=== PATIENT | male | born 1950 | race Caucasian/White ===

== ENCOUNTER → 2021-01-19 15:42 | Outpatient (CLI) | payer MEDICARE, BC, SELFPAY ==
[2021-01-19 18:09] LABS: BUN Creatinine Ratio 10.7 (6-22); Blood Urea Nitrogen 9 mg/dL (9-20); Calcium 9.5 mg/dL (8.4-10.2); Carbon Dioxide 29 mmol/L (22-32); Chloride 95 mmol/L (98-107); Estimated Glomerular Filt Rate > 60.0 mL/min (>60); Glucose 82 mg/dL (80-110); HEMOLYSIS < 15 (0-50); Hemoglobin A1C% w Est Avg Glu 6.6 % (4.0-6.0); Potassium 4.7 mmol/L (3.4-5.1); Sodium 133 mmol/L (137-145)
== END ==
PROVIDERS: PCP Student in an Organized Health Care Education/Training Program; Referring Provider Student in an Organized Health Care Education/Training Program; Visit Provider Student in an Organized Health Care Education/Training Program
DX: E11.9 Type 2 diabetes mellitus without complications (principal); I25.10 Atherosclerotic heart disease of native coronary artery without angina pectoris
CPT/HCPCS: 36415; 80048; 83036

== ENCOUNTER → 2021-04-13 11:56 | Outpatient (CLI) | payer MEDICARE, SELFPAY ==
[2021-04-13 13:50] LABS: Prostate Specific Antigen 0.263 ng/mL (0.10-4.00)
== END ==
PROVIDERS: PCP Student in an Organized Health Care Education/Training Program; Referring Provider Specialist; Visit Provider Specialist
DX: N40.1 Benign prostatic hyperplasia with lower urinary tract symptoms (principal); N13.8 Other obstructive and reflux uropathy
CPT/HCPCS: 36415; 84153

== ENCOUNTER → 2021-06-13 08:19 | Outpatient (CLI) | payer MEDICARE, SELFPAY ==
[2021-06-13 10:58] LABS: Cortisol AM (Before 10AM) 8.17 ug/dL (4.46-22.7); Prostate Specific Antigen Scrn 0.378 ng/mL (0.1-4.0)
[2021-06-13 12:31] LABS: Prealbumin 24.6 mg/dL (17.6-36.0)
[2021-06-13 12:38] LABS: BUN Creatinine Ratio 12.9 (6-22); Blood Urea Nitrogen 12 mg/dL (9-20); Estimated Glomerular Filt Rate > 60.0 mL/min (>60)
[2021-06-20 12:12] LABS: Aldosterone/Renin Activity Rat 17.3 (0.0-30.0); Plama Renin, LC/MS/MS 1.227 ng/mL/hr (0.167-5.380)
[2021-06-25 22:39] LABS: Metanephrine,Plasma 24.6 pg/mL (0.0-88.0)
== END ==
PROVIDERS: PCP Student in an Organized Health Care Education/Training Program; Referring Provider Student in an Organized Health Care Education/Training Program; Visit Provider Student in an Organized Health Care Education/Training Program
DX: Z12.5 Encounter for screening for malignant neoplasm of prostate (principal); E27.8 Other specified disorders of adrenal gland; R63.0 Anorexia
CPT/HCPCS: 36415; 82088; 82533; 82565; 83835; 84134; 84244; 84520; G0103

== ENCOUNTER → 2021-06-23 12:40 | Outpatient (CLI) | payer MEDICARE, SELFPAY ==
--- NOTE | 2021-06-23 12:41 | DI.CT.S_ITS ---
PROCEDURE: CT ABDOMEN PELVIS WO/W CON INDICATIONS: Adrenal incidentaloma TECHNIQUE: After the administration of oral contrast, 5 mm thick sections acquired from the diaphragms to the iliac crests. After the administration of intravenous contrast, 5 mm thick sections acquired from the diaphragms to the symphysis. 5 mm thick coronal and sagittal reformats were acquired. For radiation dose reduction, the following was used: automated exposure control, adjustment of mA and/or kV according to patient size. COMPARISON: [facility], CT, CT ABDOMEN PELVIS WITH CONTRAST, 06/09/2021, 15:02. FINDINGS: Image quality: Excellent. ABDOMEN: Lung bases: Lung bases are clear. Heart size is normal. Solid organs: Liver is normal in size and enhancement. Gallbladder has been removed. Mild prominence of the common bile duct is unchanged suspected to be post cholecystectomy sequela. Pancreas enhances normally. Spleen is normal in size and enhancement. Both kidneys are normal in size. No hydronephrosis. Nonobstructing 4 mm left renal calculus is present. There is an unchanged 1.9 cm right adrenal nodule. Hounsfield units measure 19, 94 and 38 within the non-contrast, venous and delayed phases respectively. Absolute washout is approximately 75% with relative washout at 60%. Bowel and peritoneum: Stomach, small and large bowel loops are normal in caliber and wall thickness. No free fluid or air. Gastric bypass is present. Postsurgical changes within the left abdomen are present. Nodes and vessels: No retroperitoneal or mesenteric adenopathy by size criteria. Aorta and inferior vena are normal in caliber. Miscellaneous: Previous ventral hernia repair is present. There is a small periumbilical hernia containing a short segment of colonic bowel loop without incarceration or strangulation. PELVIS: Genitourinary: Bladder wall thickness is normal. Miscellaneous: No inguinal hernias or adenopathy. Bones: No suspicious bony lesions. No vertebral body compression fractures. IMPRESSION: 1. Right adrenal nodule most consistent with adenoma. Dictated by: Georgie Avila M.D. on 06/23/2021 at 16:29 Approved by: Georgie Avila M.D. on 06/23/2021 at 16:34
== END ==
PROVIDERS: PCP Student in an Organized Health Care Education/Training Program; Referring Provider Student in an Organized Health Care Education/Training Program; Visit Provider Student in an Organized Health Care Education/Training Program
DX: E27.8 Other specified disorders of adrenal gland (principal); N20.0 Calculus of kidney; K42.9 Umbilical hernia without obstruction or gangrene; R63.4 Abnormal weight loss; Z86.010 Personal history of colon polyps; Z98.84 Bariatric surgery status; Z90.49 Acquired absence of other specified parts of digestive tract
CPT/HCPCS: 74178; 99214; Q9967

== ENCOUNTER → 2021-07-04 09:51 | Outpatient (CLI) | payer MEDICARE, SELFPAY ==
[2021-07-04 11:25] LABS: COVID19 -Nasal RAPID Negative (Negative)
== END ==
PROVIDERS: PCP Student in an Organized Health Care Education/Training Program; Visit Provider Specialist
DX: Z01.812 Encounter for preprocedural laboratory examination (principal); Z20.822 Contact with and (suspected) exposure to COVID-19
CPT/HCPCS: 87635; C9803

== ENCOUNTER 2021-07-05 09:04 | Day surgery (SDC) | payer MEDICARE, SELFPAY ==
[2021-07-05 09:50] VITALS: BP 168/66; PULSE 45; RESP 15; TEMP 36.1; O2SAT 100; BMI 25.7
[2021-07-05] MEDS: LACTATED RINGERS 1,000 ML 200 ML IV (10:15)
--- NOTE | 2021-07-05 10:23 | PM.PREOP ---
Pre-operative Note COVID-19 COVID-19 status: Negative Result date/Date tested (Pos, Neg/Pending): 07/04/21 Interval Note History & Physical reviewed/Exam performed by Physician: Yes Changes to H&P: No ASA Class (for procedural sedation): II
[2021-07-05] MEDS: fentaNYL 250 MCG/5 ML INJ IV (11:07)
[2021-07-05] MEDS: MIDAZOLAM 5 MG/5 ML VIAL IV (11:08)
[2021-07-05 11:09] VITALS: BP 124/60; PULSE 45; RESP 10; TEMP 36.5; O2SAT 99
--- NOTE | 2021-07-05 11:12 | P.OP.COLON_ITS ---
Operative Date/Time/Diagnoses Date of procedure: 07/05/21 Time of procedure: 11:12 Pre-op diagnosis: Screening for colon cancer. Unexplained weight loss. Last colonoscopy 6 years ago. Personal history of polyps. Post-op diagnosis: same Procedure & Clinicians Study performed: Colonoscopy Same procedure as scheduled: Yes Indications: Screening Surgeon: Darren Garza Procedure Notes SCOAP/Timeout: Performed Procedure in detail: The patient was placed in the left lateral decubitus position and underwent IV sedation directed by the surgeon consisting of fentanyl and Versed. Digital exam was remarkable for a flat prostate. The scope was inserted and advanced through the rectum into the sigmoid, descending, transverse, and ascending colon. A stiffener was inserted and pressure applied in order to reach the cec um. The cecum was reached identified by the ileocecal valve and the appendiceal opening. It was difficult to inflate the cecum for some reason but I felt I had a complete view of it. There was a good deal of liquid stool in it that I had to suction out and irrigate. The Scope was gradually brought out. NoPolyps were found. The scope ultimately was retroflexed in the rectum. The appearance was remarkable for internal hemorrhoids without ulceration. The scope was removed and the patient tolerated the procedure well. The prep was very good. Scope withdrawal time: 9 minutes Sedation minutes: 37 Findings: internal hemorrhoids Specimen(s): none sent Complications: none Post-procedure Recommendations: Colonoscopy in 5 years (Due to history of polyps) Follow up: as needed Disposition: PACU
[2021-07-05 11:14] VITALS: BP 113/59; PULSE 45; RESP 12; O2SAT 99
[2021-07-05 11:24] VITALS: BP 138/68; PULSE 45; RESP 16; TEMP 36.3; O2SAT 99
[2021-07-05 11:29] VITALS: BP 141/70; PULSE 46; RESP 14; TEMP 36.3; O2SAT 99
== END 2021-07-05 11:48 | disposition home or self-care (01) ==
PROVIDERS: PCP Student in an Organized Health Care Education/Training Program; Referring Provider Specialist; Visit Provider Specialist
PROC: 0DJD8ZZ Inspection of Lower Intestinal Tract, Via Natural or Artificial Opening Endoscopic (ICD-10-PCS; CPT 45378; principal; 2021-07-05 10:15)
DX: Z12.11 Encounter for screening for malignant neoplasm of colon (principal); Z86.010 Personal history of colon polyps; R63.4 Abnormal weight loss; K64.8 Other hemorrhoids
CPT/HCPCS: G0105; 99152; 99153; J2250; J3010

== ENCOUNTER → 2021-10-04 11:54 | Outpatient (CLI) | payer MEDICARE, SELFPAY ==
--- NOTE | 2021-10-05 13:52 | DIAB.MNT ---
Initial Diabetes Medical Nutrition Therapy Assessment Name: Asher Yi Date: 10/04/21 Time: [id number] Dx: Type II Diabetes Provider: Sylvia Sterling presents 1 hour late for his appt today. We decided to complete a very quick initial visit. Provided him paperwork to complete for next visit. 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 States he has been dealing with depression, exacerbated by his adult child's drug addiction. Reports h/o hypoglycemia on Metformin. No longer taking DM meds and feeling much better. H/o RYGB sx. This year got down to 185# due to sepsis and hospitalization. Continues to struggle with appetite, but endorses regular eating occurrences, usually 3-4 per day. Was drinking ensure, not currently. He is the cook in the house. He quit ETOH and diet soda. Self-Monitoring Blood Glucose: None Diabetes Medications: None Pertinent Labs: 01/2021: 6.6% 05/2021: 6.2% Past Medical History: (Last Updated 07/14/21 @ 11:36 by Asher Ward MD) Adrenal adenoma Anemia Atrial fibrillation BPH w urinary obs/LUTS Chicken pox Erectile dysfunction due to arterial disease Foot pain Fractures Hearing loss History of colon polyps Internal hemorrhoids Peyronie disease Ulcerative colitis (~1975) Vision disorder Nutrition Rx: Continue eating 3-4x per day (more detail next visit) Nutrition Diagnosis: - Altered nutrition related labs r/t diagnosis of DM aeb h/o labs >6.5% - Hx of inadequate energy intake r/t sepsis and potentially exacerbated by RYGB hx aeb h/o unintentional wt loss Intervention: This participant was very receptive. Provided appropriate educational handouts. Discussed the following topics: Reviewed nutrition and dm history Discussed eating occurrences Reviewed potential for additional protein intake with shakes-- he would like to reincorporate ensure Goals: Try to have ensure 1-2 x per day Follow-up: [facility] follow-up in 2-3 weeks Tamara Jackson RDN, NAZ[facility] Certified Diabetes Care and [employer] P: [phone] Thank you for this referral
== END ==
PROVIDERS: PCP Student in an Organized Health Care Education/Training Program; Referring Provider Student in an Organized Health Care Education/Training Program; Visit Provider Student in an Organized Health Care Education/Training Program
DX: E11.9 Type 2 diabetes mellitus without complications (principal)
CPT/HCPCS: 97802

== ENCOUNTER → 2021-12-29 11:45 | Outpatient (CLI) | payer MEDICARE, SELFPAY ==
[2021-12-29 13:40] LABS: Hemoglobin A1C% w Est Avg Glu 8.9 % (4.0-6.0)
[2021-12-29 14:12] LABS: BUN Creatinine Ratio 16.9 (6-22); Blood Urea Nitrogen 14 mg/dL (9-20); Estimated Glomerular Filt Rate > 60 mL/min (>60)
[2021-12-29 14:28] LABS: Creatinine Urine Random 50.8 mg/dL
[2021-12-29 14:37] LABS: Microalbumi Creatinin Ratio Ur 17.7 ug/mg CR (<30); Microalbumin Urine Random 0.9 mg/dL (0-1.6)
== END ==
PROVIDERS: PCP Student in an Organized Health Care Education/Training Program; Referring Provider Student in an Organized Health Care Education/Training Program; Visit Provider Student in an Organized Health Care Education/Training Program
DX: E11.9 Type 2 diabetes mellitus without complications (principal)
CPT/HCPCS: 36415; 82043; 82565; 82570; 83036; 84520

== ENCOUNTER → 2022-04-06 10:24 | Outpatient (CLI) | payer MEDICARE, SELFPAY ==
[2022-04-06 12:03] LABS: Alanine Aminotransferase 71 IU/L (<50); Albumin 4.1 g/dL (3.5-5.0); Albumin Globulin Ratio 1.2 (1.0-2.8); Alkaline Phosphatase 81 U/L (38-126); Aspartate Aminotransferase 77 IU/L (17-59); BUN Creatinine Ratio 10.6 (6-22); Bilirubin Total 0.3 mg/dL (0.2-1.3); Blood Urea Nitrogen 9 mg/dL (9-20); Calcium 8.5 mg/dL (8.4-10.2); Carbon Dioxide 26 mmol/L (22-32); Chloride 102 mmol/L (98-107); Cholesterol 105 mg/dL (140-199); Estimated Glomerular Filt Rate > 60 mL/min (>60); Globulin 3.3 g/dL (1.7-4.1); Glucose 179 mg/dL (80-110); HDL Cholesterol 51 mg/dL (40-60); HEMOLYSIS < 15 (0-50); LDL Cholesterol Calculated 40 mg/dL (<100); Potassium 4.2 mmol/L (3.4-5.1); Sodium 134 mmol/L (137-145); Total Protein 7.4 g/dL (6.3-8.2); Triglycerides 69 mg/dL (35-150)
[2022-04-06 12:20] LABS: Vitamin D 25 Hydroxy (D3) 49.8 ng/mL (30.0-100.0)
[2022-04-06 12:53] LABS: Vitamin B12 473 pg/mL (239-931)
[2022-04-07 03:36] LABS: Fructosamine 335 umol/L (0-285)
== END ==
PROVIDERS: PCP Student in an Organized Health Care Education/Training Program; Referring Provider Student in an Organized Health Care Education/Training Program; Visit Provider Student in an Organized Health Care Education/Training Program
DX: E11.69 Type 2 diabetes mellitus with other specified complication (principal); E55.9 Vitamin D deficiency, unspecified; E11.9 Type 2 diabetes mellitus without complications; E53.8 Deficiency of other specified B group vitamins; E78.5 Hyperlipidemia, unspecified; I10 Essential (primary) hypertension
CPT/HCPCS: 36415; 80053; 80061; 82306; 82607; 82985

== ENCOUNTER → 2023-01-22 10:38 | Outpatient (CLI) | payer MEDICARE, SELFPAY ==
[2023-01-22 11:45] LABS: Add Manual Diff / Slide Review NO; Basophils Absolute Auto 0 /uL (0-100); Basophils Percent Auto 0.7 % (0-2); Eosinophils Absolute Auto 200 /uL (0-450); Eosinophils Percent Auto 3.4 % (2-4); Hematocrit 30.1 % (41-53); Hemoglobin 9.3 g/dL (13.5-17.5); Lymphocytes Absolute Auto 2100 /uL (1100-4500); Lymphocytes Percent Auto 36.7 % (25-40); Mean Corpuscular HGB Conc 30.9 % (30-36); Mean Corpuscular Hemoglobin 20.9 PG (26-34); Mean Corpuscular Volume 67.6 fL (80-100); Monocytes Absolute Auto 600 /uL (0-900); Monocytes Percent Auto 10.7 % (3-14); Neutrophils Absolute Auto 2800 /uL (1500-7000); Neutrophils Percent Auto 48.5 % (50-75); Platelet Count 364 X10^3/uL (150-400); Red Blood Cell Count 4.45 X10^6/uL (4.5-5.9); Red Cell Distribution Width 18.1 % (11.6-14.8); White Blood Cell Count 5.8 X10^3/uL (4.5-11.0)
[2023-01-22 12:08] LABS: Alanine Aminotransferase 84 IU/L (<50); Albumin Globulin Ratio 1.4 (1.0-2.8); Alkaline Phosphatase 99 U/L (38-126); Aspartate Aminotransferase 70 IU/L (17-59); BUN Creatinine Ratio 14.6 (6-22); Bilirubin Total 0.3 mg/dL (0.2-1.3); Blood Urea Nitrogen 13 mg/dL (9-20); Calcium 8.8 mg/dL (8.4-10.2); Carbon Dioxide 28 mmol/L (22-32); Chloride 96 mmol/L (98-107); Cholesterol 99 mg/dL (140-199); Estimated Glomerular Filt Rate > 60 mL/min (>60); Globulin 2.9 g/dL (1.7-4.1); Glucose 227 mg/dL (80-110); HDL Cholesterol 36 mg/dL (40-60); HEMOLYSIS < 15 (0-50); LDL Cholesterol Calculated 40 mg/dL (<100); Potassium 4.8 mmol/L (3.4-5.1); Sodium 131 mmol/L (137-145); Total Protein 6.9 g/dL (6.3-8.2); Triglycerides 117 mg/dL (35-150)
[2023-01-22 12:11] LABS: Microcytosis 2+; Poikilocytosis 1+
[2023-01-22 12:20] LABS: Creatinine Urine Random 18.9 mg/dL
[2023-01-22 12:39] LABS: Microalbumin Urine Random < 0.6 mg/dL (0-1.6)
[2023-01-23 11:16] LABS: x Labcorp Estim. Avg Glu (eAG) 269 mg/dL (.)
== END ==
PROVIDERS: Student in an Organized Health Care Education/Training Program; PCP Pediatrics; Referring Provider Pediatrics; Visit Provider Pediatrics
DX: E11.69 Type 2 diabetes mellitus with other specified complication (principal); E11.9 Type 2 diabetes mellitus without complications; E53.8 Deficiency of other specified B group vitamins; E78.5 Hyperlipidemia, unspecified; I10 Essential (primary) hypertension
CPT/HCPCS: 36415; 80053; 80061; 82043; 82570; 83036; 85025

== ENCOUNTER → 2023-01-23 14:52 | Outpatient (CLI) | payer MEDICARE, SELFPAY ==
[2023-01-23 15:23] LABS: HEMOLYSIS < 15 (0-50); Iron 24 ug/dL (49-181)
[2023-01-23 15:34] LABS: Percent Iron Saturation 5 % (20-50); Total Iron Binding Capacity 449 ug/dL (261-462); Transferrin 326 mg/dL (206-381)
[2023-01-23 15:44] LABS: Reticulocyte Count, Percent 1.2 % (0.9-2.6)
[2023-01-23 16:28] LABS: Folate 18.7 ng/mL (2.76-20.0); Vitamin B12 657 pg/mL (239-931)
== END ==
PROVIDERS: PCP Pediatrics; Visit Provider Pediatrics
DX: E11.9 Type 2 diabetes mellitus without complications (principal); E53.8 Deficiency of other specified B group vitamins; I10 Essential (primary) hypertension; I35.0 Nonrheumatic aortic (valve) stenosis; K25.9 Gastric ulcer, unspecified as acute or chronic, without hemorrhage or perforation; R79.89 Other specified abnormal findings of blood chemistry; Z00.00 Encounter for general adult medical examination without abnormal findings
CPT/HCPCS: 82607; 82746; 83540; 83550; 85045

== ENCOUNTER 2023-02-21 15:25 | Emergency (ER) | payer MEDICARE, SELFPAY ==
[2023-02-21 15:40] VITALS: BP 137/68; PULSE 50; RESP 16; TEMP 36.6; O2SAT 100; BMI 28.8
--- NOTE | 2023-02-21 15:54 | DI.CT.S_ITS ---
PROCEDURE: CT HEAD/BRAIN WO CON INDICATIONS: fall on thinners TECHNIQUE: Noncontrast 4.5 mm thick angled axial sections acquired from the foramen magnum to the vertex, with coronal and sagittal reformats. For radiation dose reduction, the following was used: automated exposure control, adjustment of mA and/or kV according to patient size. COMPARISON: [facility], CT, CT CERVICAL SPINE WO CON, 02/21/2023, 16:07. FINDINGS: Image quality: This examination is limited by involuntary motion artifact. CSF spaces: Basal cisterns are patent. No extra-axial fluid collections. The ventricles are symmetric in size and shape. Brain: No intracranial bleeds or masses. There is cerebral volume loss for age, with resultant ventricular and sulcal prominence. There are periventricular and deep white matter chronic small vessel ischemic changes. There is intracranial internal carotid artery atherosclerosis. Skull and face: Calvarium and visualized facial bones appear intact, without suspicious lesions. Sinuses: Visualized sinuses and mastoids are clear. IMPRESSION: No acute intracranial hemorrhage is seen. No acute intracranial process is seen. Dictated by: Chilango Da Silva M.D. on 02/21/2023 at 15:34 Approved by: Chilango Da Silva M.D. on 02/21/2023 at 15:34
--- NOTE | 2023-02-21 15:56 | DI.RAD.S_ITS ---
PROCEDURE: XR HIP W PEL IF DONE RT 2V INDICATIONS: fall, R hip pain TECHNIQUE: 2 views of the hip were acquired. COMPARISON: None. FINDINGS: Bones: No fractures or dislocations. No suspicious bony lesions. The visualized pelvic ring appears intact. Mild right hip osseous hypertrophy compatible with osteoarthritis. Soft tissues: No suspicious soft tissue calcifications or masses. IMPRESSION: Mild right hip osteoarthritis. No fracture. No acute osseous lesion. If symptoms and/or clinical suspicion for pathology persists, further assessment with repeat radiographs (7-10 days) or advanced imaging (e.g. CT, MRI or bone scan) should be considered. Dictated by: Tasha Gimenez MD, PhD on 02/21/2023 at 16:22 Approved by: Tasha Gimenez MD, PhD on 02/21/2023 at 16:23
--- NOTE | 2023-02-21 15:57 | DI.RAD.S_ITS ---
PROCEDURE: XR ELBOW LT MIN 3V INDICATIONS: fall, L elbow pain TECHNIQUE: 3 views of the elbow were acquired. COMPARISON: None. FINDINGS: Bones: No fractures or dislocations. No suspicious bony lesions. Soft tissues: No elbow joint effusion. No suspicious soft tissue calcifications. IMPRESSION: No fracture. No acute osseous lesion. If symptoms and/or clinical suspicion for pathology persists, further assessment with repeat radiographs (7-10 days) or advanced imaging (e.g. CT, MRI or bone scan) should be considered. Dictated by: Tasha Gimenez MD, PhD on 02/21/2023 at 16:13 Approved by: Tasha Gimenez MD, PhD on 02/21/2023 at 16:13
--- NOTE | 2023-02-21 16:07 | DI.CT.S_ITS ---
PROCEDURE: CT CERVICAL SPINE WO CON INDICATIONS: fall on thinners TECHNIQUE: Noncontrast 3 mm thick sections acquired from the skull base to the T4 level. Sagittal and coronal reformats were then constructed. For radiation dose reduction, the following was used: automated exposure control, adjustment of mA and/or kV according to patient size. COMPARISON: [facility], CT, CT HEAD/BRAIN WO CON, 02/21/2023, 16:07. FINDINGS: Image quality: Excellent. Bones: No fractures or dislocations. Visualized superior ribs are intact. Focal degenerative change is seen involving the C1-C2 interface anteriorly. At least moderate disc space narrowing can be seen at the C5-C6 level. Bridging anterior osteophytes are seen. Endplate irregularity and sclerosis can be seen. Soft tissues: Prevertebral soft tissues are normal in thickness. No paravertebral hematomas. No apical pneumothoraces. IMPRESSION: Negative for acute fracture. Cervical spine degenerative changes can be seen. Dictated by: Chilango Da Silva M.D. on 02/21/2023 at 15:35 Approved by: Chilango Da Silva M.D. on 02/21/2023 at 15:39
--- NOTE | 2023-02-21 16:38 | PC.NURSE ---
C-spine palpated, denies tenderness
--- NOTE | 2023-02-21 18:06 | ED_ITS ---
HPI - Fall <Viola Donws [facility] - Last Filed: 02/27/23 14:24> General Chief Complaint: Fall Stated Complaint: fall, on thinners,head hip arm injury sent by MD Time Seen by Provider: 02/21/23 18:06 Source: patient and family Mode of arrival: Ambulatory History of Present Illness HPI Narrative: This is a 72-year-old gentleman who presents to the emergency department after a fall he had a few days ago where he stumbled falling onto his right hip. He has scattered bruises and bumps and came in with concern for anemia. Patient is anticoagulated on apixaban for history of atrial fibrillation, he is currently i n sinus rhythm. His primary care provider is Dr. Ward. Patient states that he did not lose consciousness or strike his head but he has been sleeping more than usual the last few days. He has not had any stool changes or urinary changes, denies blood in his urine or stool. Denies any abdominal. States that he has scratches and a few wounds on his left upper arm, an abrasion to his right knee, and bruising to his right hip with point tenderness. He denies any dizziness, lightheadedness, vision changes. Denies nausea vomiting. States that he has a history of anemia and a remote Bandar-en-Y procedure, also has history of type 2 diabetes, CAD, aortic stenosis, gastric ulcer and has been taking 40 mg of omeprazole daily. Patient was found to have a gastric ulcer at the anastomosis site of his Bandar-en-Y procedure many years ago and is looking for a feather edger for endoscopy to look for lesions causing bleeding. He states that the wounds on his left forearm are still moist and surrounded with redness, he is concerned about infection. Related Data Home Medications Medication Instructions Recorded Confirmed amlodipine 2.5 mg tablet 2.5 mg PO DAILY 12/06/20 01/25/23 apixaban 5 mg tablet (Eliquis) 5 mg PO BID 12/06/20 01/25/23 cetirizine 10 mg capsule (Zyrtec) 10 mg PO DAILY PRN Adequate 12/06/20 01/25/23 Ventilation dronedarone 400 mg tablet 400 mg PO BID 12/06/20 01/25/23 rosuvastatin 20 mg tablet 20 mg PO .QHS 03/09/21 01/25/23 Previous Rx's Medication Instructions Recorded cyanocobalamin (vitamin B-12) See Rx Instructions .Route 01/14/23 1,000 mcg/mL injection solution .COMPLEX #6 mL ferrous sulfate 325 mg (65 mg 325 mg PO Q OTHER DAY #90 tabs 01/24/23 iron) tablet (FeroSul) metformin 500 mg tablet 500 mg PO BID diabetes #180 tabs 01/24/23 omeprazole 20 mg capsule,delayed 20 mg PO DAILY #90 caps 01/24/23 release blood-glucose meter #1 ea 01/29/23 blood sugar diagnostic (OneTouch #100 ea 01/30/23 Verio test strips) lancets 30 gauge #100 ea 01/30/23 diclofenac sodium 1 % topical gel 4 g topical QID PRN pain #100 grams 02/21/23 hydrocodone 5 mg-acetaminophen 325 1 tab PO Q6H PRN pain #10 tabs 02/21/23 mg tablet lidocaine 5 % topical patch 1 patch topical DAILY PRN pain #30 02/21/23 (Lidoderm) ea mupirocin 2 % topical ointment 1 applic topical DAILY #22 grams 02/21/23 Allergies Allergy/AdvReac Type Severity Reaction Status Date / Time No Known Drug Allergies Allergy Verified 02/21/23 15:53 Review of Systems <JENNIFER Michael - Last Filed: 02/27/23 14:24> Review of Systems ROS Unobtainable: All systems reviewed & are unremarkable except as noted in HPI and below Patient History <JENNIFER Michael - Last Filed: 02/27/23 14:24> Medical History (Updated 02/21/23 @ 19:04 by JENNIFER Michael) Adrenal adenoma Anemia Atrial fibrillation BPH w urinary obs/LUTS Chicken pox Erectile dysfunction due to arterial disease Foot pain Fractures Hearing loss History of colon polyps Internal hemorrhoids Peyronie disease Ulcerative colitis (~1975) Vision disorder Surgical History Anesthesia Family History Father History of heart disease Hyperlipidemia Hypertension Stroke Mother History of heart disease Hyperlipidemia Hypertension Stroke Brother History of heart disease Hyperlipidemia Hypertension Sister Cancer Diabetes mellitus History of heart disease Hyperlipidemia Hypertension Social History household members: spouse Smoking Status: Never smoker alcohol intake: current Smoking Status: Never smoker alcohol intake frequency: 0-2 drinks per day Substance Use Type: does not use Exam <JENNIFER Mihcael - Last Filed: 02/27/23 14:24> Narrative Exam Narrative: Reviewed vitals signs and nursing notes. General: Pleasant, sitting upright, in no acute distress, well groomed, afebrile HEENT: symmetrical facial expressions, moist mucous membranes, neck is supple, no cervical spine tenderness to palpation, no step-offs, no midline spinal tenderness to palpation, head is atraumatic, EOMI, PERRLA CV: regular rate and rhythm, warm extremities Respiratory: normal work of breathing, without tachypnea or hypoxia. GI: abdomen soft, nondistended, without CVA tenderness bilaterally. MSK: moves all extremities, no weakness, normal tone, ambulatory without deficit, limping on the right due to his hip pain. He does not have hip pain with axial load, he has ecchymosis, edema and tenderness to palpation over the right lateral hip, no palpable bony abnormality, covered abrasions to left arm with adhesive bandages Skin: brisk capillary refill Neuro: clear speech and normal cognition, A&O x3, GCS 15, no focal motor or sensation deficits Initial Vital Signs Initial Vital Signs: Vital Signs Temperature 97.9 F 02/21/23 15:40 Pulse Rate 50 L 02/21/23 15:40 Respiratory Rate 16 02/21/23 15:40 Blood Pressure 137/68 02/21/23 15:40 Pulse Oximetry 100 02/21/23 15:40 Oxygen Delivery Method Room Air 02/21/23 15:40 <Vishal Blas DO - Last Filed: 02/21/23 23:36> Initial Vital Signs Initial Vital Signs: Vital Signs Temperature 97.9 F 02/21/23 15:40 Pulse Rate 50 L 02/21/23 15:40 Respiratory Rate 16 02/21/23 15:40 Blood Pressure 137/68 02/21/23 15:40 Pulse Oximetry 100 02/21/23 15:40 Oxygen Delivery Method Room Air 02/21/23 15:40 Scores <JENNIFER Michael - Last Filed: 02/27/23 14:24> [place] CT Head Rule Age <16 years old: No Patient on blood thinners: Yes Seizure after injury: No Exclusion: Patient meets exclusion criteria GCS < 15 at 2 hr post trauma: No Suspected open or depressed skull fracture: No Any sign of basilar skull fracture (hemotympanum, raccoon eyes, Kirkland's sign, CSF nikkie-/rhinorrhea): No Two or more episodes of vomiting: No Age greater or equal to 65 years: Yes Retrograde amnesia to the event greater or equal to 30 min: No Dangerous Mechanism (pedestrian vs. mv, occupant ejected from mv, fall from >3 ft or > 5 stairs): No Recommendation: Consider CT. The [place] Head CT Rule cannot rule out need for Imaging. Nexus Score for C-Spine Focal Neurologic deficit present: No Midline spinal tenderness present: No Altered level of conciousness present: No Intoxication present: No Distracting Injury Present: No Nexus Criteria for C-spine: 0 <Vishal Blas DO - Last Filed: 02/21/23 23:36> Malaysian CT Head Rule Exclusion: Patient meets exclusion criteria Recommendation: Consider CT. The [place] Head CT Rule cannot rule out need for Imaging. Nexus Score for C-Spine Nexus Criteria for C-spine: 0 Course <JENNIFER Michael - Last Filed: 02/27/23 14:24> Orders Ordered: Discontinued Medications Hydrocodone Bitart/Acetaminophen (Hydrocodone/Acet 5/325 Tablet) 1 tab PO NOW ONE Stop: 02/21/23 18:29 Last Admin: 02/21/23 19:21 Dose: 1 tab Documented By: COURTNEY Cephalexin HCl (Cephalexin 250 Mg Capsule) 500 mg PO NOW ONE Stop: 02/21/23 18:29 Last Admin: 02/21/23 19:22 Dose: 500 mg Documented By: COURTNEY Lidocaine (Lidocaine Patch 1 Each Adh..Patch) 1 each TOP NOW ONE Stop: 02/21/23 18:29 Last Admin: 02/21/23 19:22 Dose: 1 each Documented By: COURTNEY Vital Signs Vital signs: Vital Signs - 8 hr 02/21/23 15:40 02/21/23 19:25 Temperature 97.9 F Pulse Rate 50 L 47 L Respiratory Rate 16 16 Blood Pressure 137/68 167/77 H Pulse Oximetry 100 100 Oxygen Delivery Method Room Air Room Air <Vishal Blas DO - Last Filed: 02/21/23 23:36> Orders Ordered: Discontinued Medications Hydrocodone Bitart/Acetaminophen (Hydrocodone/Acet 5/325 Tablet) 1 tab PO NOW ONE Stop: 02/21/23 18:29 Last Admin: 02/21/23 19:21 Dose: 1 tab Documented By: COURTNEY Cephalexin HCl (Cephalexin 250 Mg Capsule) 500 mg PO NOW ONE Stop: 02/21/23 18:29 Last Admin: 02/21/23 19:22 Dose: 500 mg Documented By: COURTNEY Lidocaine (Lidocaine Patch 1 Each Adh..Patch) 1 each TOP NOW ONE Stop: 02/21/23 18:29 Last Admin: 02/21/23 19:22 Dose: 1 each Documented By: COURTNEY Vital Signs Vital signs: Vital Signs - 8 hr 02/21/23 15:40 02/21/23 19:25 Temperature 97.9 F Pulse Rate 50 L 47 L Respiratory Rate 16 16 Blood Pressure 137/68 167/77 H Pulse Oximetry 100 100 Oxygen Delivery Method Room Air Room Air MDM - Fall <JENNIFER Michael - Last Filed: 02/27/23 14:24> Lab Data 02/21/23 18:16 02/21/23 18:16 Labs: Lab Results 02/21/23 02/21/23 Range/Units 18:16 18:16 WBC 7.3 (4.5-11.0) X10^3/uL RBC 4.28 L (4.5-5.9) X10^6/uL Hgb 9.0 L (13.5-17.5) g/dL Hct 28.6 L (41-53) % MCV 66.8 L (80-100) fL MCH 21.1 L (26-34) PG MCHC 31.6 (30-36) % RDW 18.9 H (11.6-14.8) % Plt Count 396 (150-400) X10^3/uL Neut % (Auto) 52.1 (50-75) % Lymph % (Auto) 32.8 (25-40) % Spencer % (Auto) 10.6 (3-14) % Eos % (Auto) 3.3 (2-4) % Baso % (Auto) 1.2 (0-2) % Neut # (Auto) 3800 (9429-2008) /uL Lymph # (Auto) 2400 (7884-3883) /uL Spencer # (Auto) 800 (0-900) /uL Eos # (Auto) 200 (0-450) /uL Baso # (Auto) 100 (0-100) /uL RBC Morphology See below Anisocytosis 1+ H Microcytosis 2+ H Sodium 128 L (137-145) mmol/L Potassium 4.3 (3.4-5.1) mmol/L Chloride 93 L (98-107) mmol/L Carbon Dioxide 29 (22-32) mmol/L BUN 9 (9-20) mg/dL Creatinine 0.78 (0.66-1.25) mg/dL Estimated GFR > 60 (>60) mL/min BUN/Creatinine Ratio 11.5 (6-22) Glucose 102 (80-110) mg/dL Calcium 8.4 (8.4-10.2) mg/dL Total Bilirubin 0.3 (0.2-1.3) mg/dL AST 57 (17-59) IU/L ALT 50 H (<50) IU/L Alkaline Phosphatase 90 (38-126) U/L Total Protein 7.5 (6.3-8.2) g/dL Albumin 4.1 (3.5-5.0) g/dL Globulin 3.4 (1.7-4.1) g/dL Albumin/Globulin Ratio 1.2 (1.0-2.8) Imaging Data CT scan - head: Radiologist's Impression: PROCEDURE:? CT HEAD/BRAIN WO CON ? INDICATIONS:? fall on thinners ? TECHNIQUE:? Noncontrast 4.5 mm thick angled axial sections acquired from the foramen magnum to the vertex, with coronal and sagittal reformats.? For radiation dose reduction, the following was used:? automated exposure control, adjustment of mA and/or kV according to patient size.? ? COMPARISON:? [facility], CT, CT CERVICAL SPINE WO CON, 02/21/2023, 16:07. ? FINDINGS:? Image quality:? This examination is limited by involuntary motion artifact.? ? CSF spaces:? Basal cisterns are patent.? No extra-axial fluid collections.? The ventricles are symmetric in size and shape.? ? Brain:? No intracranial bleeds or masses.? There is cerebral volume loss for age, with resultant ventricular and sulcal prominence.? There are periventricular and deep white matter chronic small vessel ischemic changes.? There is intracranial internal carotid artery atherosclerosis.? ? Skull and face:? Calvarium and visualized facial bones appear intact, without suspicious lesions.? ? Sinuses:? Visualized sinuses and mastoids are clear.? IMPRESSION:? No acute intracranial hemorrhage is seen.? ? No acute intracranial process is seen.? ? ? Dictated by: Chilango Da Silva M.D. on 02/21/2023 at 15:34 ? ? Approved by: Chilango Da Silva M.D. on 02/21/2023 at 15:34 ? Extremity x-ray #1: Radiologist's Impression: PROCEDURE:? XR HIP W PEL IF DONE RT 2V ? INDICATIONS:? fall, R hip pain ? TECHNIQUE:? 2 views of the hip were acquired.? ? COMPARISON:? None. ? FINDINGS:? ? Bones:? No fractures or dislocations.? No suspicious bony lesions.? The visualiz ed pelvic ring appears intact.? Mild right hip osseous hypertrophy compatible with osteoarthritis.? ? ? Soft tissues:? No suspicious soft tissue calcifications or masses.? ? IMPRESSION:? ? Mild right hip osteoarthritis. ? ? No fracture. No acute osseous lesion. If symptoms and/or clinical suspicion for pathology persists, further assessment with repeat radiographs (7-10 days) or advanced imaging (e.g. CT, MRI or bone scan) should be considered. ? ? Dictated by: Tasha Gimenez MD, PhD on 02/21/2023 at 16:22 ? ? Approved by: Tasha Gimenez MD, PhD on 02/21/2023 at 16:23 ? Extremity x-ray #2: Radiologist's Impression: PROCEDURE:? XR ELBOW LT MIN 3V ? INDICATIONS:? fall, L elbow pain ? TECHNIQUE:? 3 views of the elbow were acquired.? ? COMPARISON:? None. ? FINDINGS:? ? Bones:? No fractures or dislocations.? No suspicious bony lesions.? ? Soft tissues:? No elbow joint effusion.? No suspicious soft tissue calcifica tions.? ? ? IMPRESSION:? No fracture. No acute osseous lesion. If symptoms and/or clinical suspicion for pathology persists, further assessment with repeat radiographs (7-10 days) or advanced imaging (e.g. CT, MRI or bone scan) should be considered. ? ? Dictated by: Tasha Gimenez MD, PhD on 02/21/2023 at 16:13 ? ? Approved by: Tasha Gimenez MD, PhD on 02/21/2023 at 16:13 ? CT - cervical spine: Radiologist's Impression: PROCEDURE:? CT CERVICAL SPINE WO CON ? INDICATIONS:? fall on thinners ? TECHNIQUE:? Noncontrast 3 mm thick sections acquired from the skull base to the T4 level.? Sagittal and coronal reformats were then constructed.? For radiation dose reduction, the following was used:? automated exposure control, adjustment of mA and/or kV according to patient size.? ? COMPARISON:? [facility], CT, CT HEAD/BRAIN WO CON, 02/21/2023, 16:07. ? FINDINGS:? Image quality:? Excellent.? ? Bones:? No fractures or dislocations.? Visualized superior ribs are intact.? ? Focal degenerative change is seen involving the C1-C2 interface anteriorly.? At least moderate disc space narrowing can be seen at the C5-C6 level.? Bridging anterior osteophytes are seen. Endplate irregularity and sclerosis can be seen.? ? Soft tissues:? Prevertebral soft tissues are normal in thickness.? No paravertebral hematomas.? No apical pneumothoraces.? ? ? IMPRESSION:? Negative for acute fracture. ? Cervical spine degenerative changes can be seen. ? ? Dictated by: Chilango Da Silva M.D. on 02/21/2023 at 15:35 ? ? Approved by: Chilango Da Silva M.D. on 02/21/2023 at 15:39 ? MDM Narrative Medical decision making narrative: Chief Complaint: Fall with musculoskeletal injuries Multiple etiologies for patient's complaint considered including, but not limited to: Cellulitis, acute fracture, hematoma, intra-abdominal hemorrhage, hemorrhage causing anemia I have independently reviewed the patient's vital signs and nursing notes as well as prior records if available. Plan: Patient states that he is taking a B12 supplement and iron supplement for his anemia which was found at his wellness visit on 01/22/2023. Today his H&H has gone down from 9.3 and 30.1-9.0 and 20.6. Platelet count remains stable without thrombocytopenia. Course of Care: Patient's pain was treated with hydrocodone and a lidocaine patch, he was given cephalexin for erythema surrounding the left forearm abrasion concerning for infection with his history of diabetes. Triage ordered initial imaging to include CT cervical spine, elbow x-ray, hip x-ray and head CT were all negative for acute fracture or other acute abnormality. Patient has a large area of ecchymosis over his right hip, no deformity, he is ambulatory, concern for fluid collection/hematoma or other bony fracture due to his ecchymosis and pain on the right with decreased hemoglobin and hematocrit from last draw in January of 2023. Patient reports has changed his diet, most some weight because he does not have much of an appetite. States that he is leaving for [place] in a few weeks and was not able to get into Gastroenterology for endoscopy/colonoscopy prior to doing so. He is concerned that he has bleeding at the anastomosis site from his Bandar-en-Y procedure like he did before. He denies any blood in his stool or urine. He denies any inappropriate bleeding. Social considerations that may affect disposition: none Questions are addressed and there is agreement with the plan and for follow-up. I consulted with the ED attending physician Dr. Blas as needed for higher level of care considerations and they were available for discussion and recommendations regarding plan of care and diagnostic testing. Patient is appropriate for outpatient management. <Vishal Blas, DO - Last Filed: 02/21/23 23:36> Lab Data Labs: Lab Results 02/21/23 02/21/23 Range/Units 18:16 18:16 WBC 7.3 (4.5-11.0) X10^3/uL RBC 4.28 L (4.5-5.9) X10^6/uL Hgb 9.0 L (13.5-17.5) g/dL Hct 28.6 L (41-53) % MCV 66.8 L (80-100) fL MCH 21.1 L (26-34) PG MCHC 31.6 (30-36) % RDW 18.9 H (11.6-14.8) % Plt Count 396 (150-400) X10^3/uL Neut % (Auto) 52.1 (50-75) % Lymph % (Auto) 32.8 (25-40) % Spencer % (Auto) 10.6 (3-14) % Eos % (Auto) 3.3 (2-4) % Baso % (Auto) 1.2 (0-2) % Neut # (Auto) 3800 (3989-9462) /uL Lymph # (Auto) 2400 (8255-8671) /uL Spencer # (Auto) 800 (0-900) /uL Eos # (Auto) 200 (0-450) /uL Baso # (Auto) 100 (0-100) /uL RBC Morphology See below Anisocytosis 1+ H Microcytosis 2+ H Sodium 128 L (137-145) mmol/L Potassium 4.3 (3.4-5.1) mmol/L Chloride 93 L (98-107) mmol/L Carbon Dioxide 29 (22-32) mmol/L BUN 9 (9-20) mg/dL Creatinine 0.78 (0.66-1.25) mg/dL Estimated GFR > 60 (>60) mL/min BUN/Creatinine Ratio 11.5 (6-22) Glucose 102 (80-110) mg/dL Calcium 8.4 (8.4-10.2) mg/dL Total Bilirubin 0.3 (0.2-1.3) mg/dL AST 57 (17-59) IU/L ALT 50 H (<50) IU/L Alkaline Phosphatase 90 (38-126) U/L Total Protein 7.5 (6.3-8.2) g/dL Albumin 4.1 (3.5-5.0) g/dL Globulin 3.4 (1.7-4.1) g/dL Albumin/Globulin Ratio 1.2 (1.0-2.8) Imaging Data CT scan - abdomen/pelvis: Radiologist's Impression: PROCEDURE:? CT ABDOMEN PELVIS WO CON ? INDICATIONS:? Fall, right hip pain with hematoma ? TECHNIQUE:? Noncontrast 5 mm thick sections acquired from the diaphragms to the symphysis.? 5 mm coronal and sagittal reformats were then performed.? For radiation dose reduction, the following was used:? automated exposure control, adjustment of mA and/or kV according to patient size.? ? COMPARISON:? [facility], CR, XR HIP W PEL IF DONE RT 2V, 02/21/2023, 16:11. ? FINDINGS:? Image quality:? Excellent.? ? ABDOMEN:? Lung bases:? Lung bases are clear.? Heart size is normal.? ? Solid organs:? Liver is normal in size.? Gallbladder is surgically absent. .? Pancreas is normal in contours.? Spleen is normal in size.? No adrenal nodules.? A 4 mm nonobstructing left renal stone.? No perinephric stranding.? Left ureter is normal in course and caliber without ureteral stone.? Right Kidney is normal in size without urolithiasis or hydronephrosis.? Right ureter is normal in course and caliber.? No hydroureter or periureteral stranding. ? Peritoneum and bowel:? Postsurgical changes of the stomach.? No evidence for bowel obstruction.? Large amount of fecal material seen throughout the colon.? No free air identified.? No pathologic free fluid.? ? Nodes and vessels:? No retroperitoneal or mesenteric adenopathy by size criteria.? Aorta and inferior vena cava are normal in caliber.? Atherosclerotic calcifications are noted. ? Miscellaneous:? Postsurgical changes of the ventral abdominal wall near the level of the umbilicus.? There is a small ventral hernia inferior to the level the umbilicus.? ? ? PELVIS:? Genitourinary:? Bladder wall thickness is normal.? ? Miscellaneous:? No inguinal hernias or adenopathy.? ? Bones:? No suspicious bony lesions.? No acute vertebral body compression fractures.? No acute fractures or dislocations.? Visualized bony pelvis appears intact.? No hip fractures identified.? Soft tissue swelling overlying the right hip.? No evidence for organized fluid collection or large hematomas. ? IMPRESSION:? ? 1. Soft tissue swelling overlying the right hip without underlying fracture. ? 2. No acute abnormalities identified in the abdomen or pelvis. ? 3. A 4 mm nonobstructing left renal stone.? No hydronephrosis. ? 4. Atherosclerosis.? MDM Narrative Medical decision making narrative: Chief Complaint: Fall with musculoskeletal injuries Multiple etiologies for patient's complaint considered including, but not limited to: Cellulitis, acute fracture, hematoma, intra-abdominal hemorrhage, hemorrhage causing anemia I have independently reviewed the patient's vital signs and nursing notes as well as prior records if available. Plan: Patient states that he is taking a B12 supplement and iron supplement for his anemia which was found at his wellness visit on 01/22/2023. Today his H&H has gone down from 9.3 and 30.1-9.0 and 20.6. Platelet count remains stable w ithout thrombocytopenia. Course of Care: Patient's pain was treated with hydrocodone and a lidocaine patch, he was given cephalexin for erythema surrounding the left forearm abrasion concerning for infection with his history of diabetes. Triage ordered initial imaging to include CT cervical spine, elbow x-ray, hip x-ray and head CT were all negative for acute fracture or other acute abnormality. Patient has a large area of ecchymosis over his right hip, no deformity, he is ambulatory, concern for fluid collection/hematoma or other bony fracture due to his ecchymosis and pain on the right with decreased hemoglobin and hematocrit from last draw in January of 2023. Patient reports has changed his diet, most some weight because he does not have much of an appetite. States that he is leaving for [place] in a few weeks and was not able to get into Gastroenterology for endoscopy/colonoscopy prior to doing so. He is concerned that he has bleeding at the anastomosis site from his Bandar-en-Y procedure like he did before. He denies any blood in his stool or urine. He denies any inappropriate bleeding. Social considerations that may affect disposition: none Questions are addressed and there is agreement with the plan and for follow-up. I consulted with the ED attending physician Dr. Blas as needed for higher level of care considerations and they were available for discussion and rec ommendations regarding plan of care and diagnostic testing. Patient is appropriate for outpatient management. Dr blas: Received turned over. Patient's CT scan of abdomen and pelvis is unremarkable. I did discuss the findings with him. Will discharge patient home with follow-up with his primary doctor with regard to his anemia. No further workup required here in the emergency department. Patient expressed understanding and agreement with plan. Discharge Plan Departure Patient Disposition: Home Clinical Impression: Anticoagulated, History of atrial fibrillation, History of anemia Type 2 diabetes mellitus Qualifiers: Diabetes mellitus hosting engineer insulin use: without alf use Diabetes mellitus complication status: without complication Qualified Code(s): E11.9 - Type 2 diabetes mellitus without complications Concussion without loss of consciousness Qualifiers: Encounter type: initial encounter Qualified Code(s): S06.0X0A - Concussion without loss of consciousness, initial encounter Fall Qualifiers: Encounter type: initial encounter Qualified Code(s): W19.XXXA - Unspecified fall, initial encounter Instructions: Concussion, Anemia Activity Restrictions/Additional Instructions: *You have been diagnosed with a fall with multiple injuries. Please use the topical antibiotic ointment help this. Please take oral antibiotic for the next 5 days to help prevent infection to these wounds while they heal. Please follow-up with Dr. Parson and let him know about this, I have sent him a note. We did the CT to look for internal bleeding and because you have a large hematoma to the right hip. The images of your head, neck, elbow and hip were negative for fracture or other abnormality. Unfortunately, your hemoglobin and hematocrit have dropped slightly, they are very close to where they were but th ey have not improved and this is why we ordered the CT abdomen and pelvis. Please call [facility] office and schedule a colonoscopy and endoscopy to look for a source of bleeding. *What to do: *Please continue to take your regular medications as directed. [ x] New medication prescriptions sent to your pharmacy: [ [facility] [place]] [ ] New medication written as a paper prescription [ ] No new medications given *Please call and schedule follow up with your primary care provider in 2-3 days, at least for an update. Let them know you were seen in the Emergency Department for the above problem. We will electronically transmit a record of today's note if your PCP or specialist is in our system. *If you do not have a primary care provider please contact [phone] to establish care with one of the [facility] primary care providers. *Return to the Emergency Department for worsening symptoms, inability to keep liquids down, fever greater than 101F, chills, or other concerning symptom. Prescriptions: New diclofenac sodium 1 % gel 4 g topical QID PRN (Reason: pain) Qty: 100 2RF Rx Instructions: apply to right hip as needed for pain up to 4 times a day hydrocodone-acetaminophen 5-325 mg tablet 1 tab PO Q6H PRN (Reason: pain) Qty: 10 0RF lidocaine [Lidoderm] 5 % adhesive patch,medicated 1 patch topical DAILY PRN (Reason: pain) Qty: 30 0RF Rx Instructions: leave on most painful area for up to 12 hrs mupirocin 2 % ointment 1 applic topical DAILY Qty: 22 0RF No Action rosuvastatin 20 mg tablet 20 mg PO .QHS cyanocobalamin (vitamin B-12) 1,000 mcg/mL solution See Rx Instructions .ROUTE .COMPLEX Qty: 6 0RF Hold Instructions: Trial of oral B12 Dose Instruction: inject 1ml intramuscularly every month Rx Instructions: inject 1ml intramuscularly every month ferrous sulfate [FeroSul] 325 mg (65 mg iron) tablet 325 mg PO Q OTHER DAY Qty: 90 0RF metformin 500 mg tablet 500 mg PO BID Qty: 180 0RF omeprazole 20 mg capsule,delayed release(DR/EC) 20 mg PO DAILY Qty: 90 1RF (DME) blood-glucose meter Kit See Rx Instructions .Route Qty: 1 0RF Rx Instructions: Use to check BS 5x a day (DME) OneTouch Verio test strips Strip See Rx Instructions .Route Qty: 100 6RF Rx Instructions: Use to check BS 5x a day (DME) lancets 30 gauge misc See Rx Instructions .Route Qty: 100 6RF Rx Instructions: As directed amlodipine 2.5 mg tablet 2.5 mg PO DAILY Eliquis 5 mg tablet 5 mg PO BID dronedarone 400 mg tablet 400 mg PO BID Rx Instructions: must administer with a meal/food Zyrtec 10 mg capsule 10 mg PO DAILY PRN (Reason: Adequate Ventilation) Referrals: [facility] [Provider Group] - 3-5 days (Please call for an appointment, state that you need to have a colonoscopy and endoscopy to evaluate for bleeding in your referred from the emergency department) Asher Ward MD [Primary Care Provider] - Stand Alone Forms: Patient Portal/API
[2023-02-21 18:31] LABS: Add Manual Diff / Slide Review NO; Basophils Absolute Auto 100 /uL (0-100); Basophils Percent Auto 1.2 % (0-2); Eosinophils Absolute Auto 200 /uL (0-450); Eosinophils Percent Auto 3.3 % (2-4); Hematocrit 28.6 % (41-53); Lymphocytes Absolute Auto 2400 /uL (1100-4500); Lymphocytes Percent Auto 32.8 % (25-40); Mean Corpuscular HGB Conc 31.6 % (30-36); Mean Corpuscular Hemoglobin 21.1 PG (26-34); Mean Corpuscular Volume 66.8 fL (80-100); Monocytes Absolute Auto 800 /uL (0-900); Monocytes Percent Auto 10.6 % (3-14); Neutrophils Absolute Auto 3800 /uL (1500-7000); Neutrophils Percent Auto 52.1 % (50-75); Platelet Count 396 X10^3/uL (150-400); Red Blood Cell Count 4.28 X10^6/uL (4.5-5.9); Red Cell Distribution Width 18.9 % (11.6-14.8); White Blood Cell Count 7.3 X10^3/uL (4.5-11.0)
--- NOTE | 2023-02-21 18:36 | DI.CT.S_ITS ---
PROCEDURE: CT ABDOMEN PELVIS WO CON INDICATIONS: Fall, right hip pain with hematoma TECHNIQUE: Noncontrast 5 mm thick sections acquired from the diaphragms to the symphysis. 5 mm coronal and sagittal reformats were then performed. For radiation dose reduction, the following was used: automated exposure control, adjustment of mA and/or kV according to patient size. COMPARISON: [facility], CR, XR HIP W PEL IF DONE RT 2V, 02/21/2023, 16:11. FINDINGS: Image quality: Excellent. ABDOMEN: Lung bases: Lung bases are clear. Heart size is normal. Solid organs: Liver is normal in size. Gallbladder is surgically absent. . Pancreas is normal in contours. Spleen is normal in size. No adrenal nodules. A 4 mm nonobstructing left renal stone. No perinephric stranding. Left ureter is normal in course and caliber without ureteral stone. Right Kidney is normal in size without urolithiasis or hydronephrosis. Right ureter is normal in course and caliber. No hydroureter or periureteral stranding. Peritoneum and bowel: Postsurgical changes of the stomach. No evidence for bowel obstruction. Large amount of fecal material seen throughout the colon. No free air identified. No pathologic free fluid. Nodes and vessels: No retroperitoneal or mesenteric adenopathy by size criteria. Aorta and inferior vena cava are normal in caliber. Atherosclerotic calcifications are noted. Miscellaneous: Postsurgical changes of the ventral abdominal wall near the level of the umbilicus. There is a small ventral hernia inferior to the level the umbilicus. PELVIS: Genitourinary: Bladder wall thickness is normal. Miscellaneous: No inguinal hernias or adenopathy. Bones: No suspicious bony lesions. No acute vertebral body compression fractures. No acute fractures or dislocations. Visualized bony pelvis appears intact. No hip fractures identified. Soft tissue swelling overlying the right hip. No evidence for organized fluid collection or large hematomas. IMPRESSION: 1. Soft tissue swelling overlying the right hip without underlying fracture. 2. No acute abnormalities identified in the abdomen or pelvis. 3. A 4 mm nonobstructing left renal stone. No hydronephrosis. 4. Atherosclerosis. Dictated by: Warren Scruggs M.D. on 02/21/2023 at 18:39 Approved by: Warren Scruggs M.D. on 02/21/2023 at 19:00
[2023-02-21 18:54] LABS: Alanine Aminotransferase 50 IU/L (<50); Albumin 4.1 g/dL (3.5-5.0); Albumin Globulin Ratio 1.2 (1.0-2.8); Alkaline Phosphatase 90 U/L (38-126); Aspartate Aminotransferase 57 IU/L (17-59); BUN Creatinine Ratio 11.5 (6-22); Bilirubin Total 0.3 mg/dL (0.2-1.3); Blood Urea Nitrogen 9 mg/dL (9-20); Calcium 8.4 mg/dL (8.4-10.2); Carbon Dioxide 29 mmol/L (22-32); Chloride 93 mmol/L (98-107); Estimated Glomerular Filt Rate > 60 mL/min (>60); Globulin 3.4 g/dL (1.7-4.1); Glucose 102 mg/dL (80-110); HEMOLYSIS < 15 (0-50); Potassium 4.3 mmol/L (3.4-5.1); Sodium 128 mmol/L (137-145); Total Protein 7.5 g/dL (6.3-8.2)
[2023-02-21 19:10] LABS: Anisocytosis 1+
[2023-02-21 19:11] LABS: Microcytosis 2+
[2023-02-21] MEDS: HYDROCODONE/ACET 5/325 TABLET 1 TAB PO (19:21)
[2023-02-21] MEDS: cephALEXin 250 MG CAPSULE 500 MG PO (19:22)
[2023-02-21] MEDS: LIDOCAINE PATCH 1 EACH ADH..PATCH TOP (19:22)
[2023-02-21 19:25] VITALS: BP 167/77; PULSE 47; RESP 16; O2SAT 100
== END 2023-02-21 20:25 | disposition home or self-care (01) ==
PROVIDERS: Nurse Practitioner Critical Care Medicine; Emergency Provider Emergency Medicine; PCP Student in an Organized Health Care Education/Training Program
DX: S06.0X0A Concussion without loss of consciousness, initial encounter (principal); E11.9 Type 2 diabetes mellitus without complications; I48.91 Unspecified atrial fibrillation; Z79.01 Long term (current) use of anticoagulants; M25.551 Pain in right hip; M25.522 Pain in left elbow; W18.30XA Fall on same level, unspecified, initial encounter
CPT/HCPCS: 70450; 72125; 73080; 73502; 74176; 80053; 85025; 99283; 99284